=== PATIENT | male | born 1950 ===

== ENCOUNTER 2018-08-05 22:42 | Inpatient (IN) | payer OTHER ==
[2018-08-06] MEDS ORDERED: Sodium Chloride 0.9% 1,000 ML IV STA (00:24)
[2018-08-06 01:07] LABS: HEMOGLOBIN 14.5 g/dL (12.0-18.0); MEAN CELL VOLUME 94.3 fl (80.0-94.0); MEAN CORPUSCULAR HEMOGLOBIN 32.2 pg (27.0-31.0); MEAN CORPUSCULAR HGB CONC 34.1 g/dL (33.0-37.0); MEAN PLATELET VOLUME 9.7 fl (7.2-11.7); PLATELET COUNT 206 K/uL (130-400); RBC 4.51 Mil/uL (4.40-5.90); RED CELL DISTRIBUTION WIDTH 13.4 % (11.5-14.5); WHITE BLOOD COUNT 9.2 K/uL (4.8-10.8)
[2018-08-06 01:10] LABS: URINE AMORPHOUS SEDIMENT RARE /ul (<OCC); URINE BILIRUBIN NEGATIVE (NEGATIVE); URINE BLOOD NEGATIVE (NEGATIVE); URINE CLARITY SLIGHTY-CLOUDY (Clear); URINE COLOR YELLOW (YELLOW); URINE GLUCOSE (UA) 50 mg/dL (NEGATIVE); URINE LEUKOCYTE ESTERASE NEG Leu/uL (Negative); URINE PROTEIN NEGATIVE (NEGATIVE)
[2018-08-06 01:15] LABS: ALB/GLOB RATIO 1.2 (1.0-2.1); ALBUMIN 4.3 g/dL (3.5-5.0); ALT/SGPT 505 U/L (21-72); AST/SGOT 677 U/L (17-59); BLOOD UREA NITROGEN 14 mg/dl (9-20); CALCIUM 8.8 mg/dL (8.4-10.2); GFR NON-AFRICAN AMERICAN > 60; LIPASE 148 U/L (23-300)
--- NOTE | 2018-08-06 01:17 | ED PDOC ---
HPI: Abdomen Time Seen by Provider: 08/06/18 00:09 Chief Complaint (Nursing): Abdominal Pain Chief Complaint (Provider): Abdominal Pain History Per: Patient History/Exam Limitations: no limitations Onset/Duration Of Symptoms: Days (1) Location Of Pain/Discomfort: Epigastric Associated Symptoms: denies: Fever, Nausea, Vomiting, Diarrhea, Constipation Additional Complaint(s): 68 y/o male with no significant PMHx presents to the ED with abdominal pain for x1 day. Patient reports he developed mild epigastric pain earlier in the day. He drank some anise tea and felt better. However, pain recurred this evening and was much stronger. Patient denies nausea, vomiting, diarrhea, fever, cough, shortness of breath, chest pain, or any changes in bowel movement. Past Medical History Reviewed: Historical Data, Nursing Documentation, Vital Signs Vital Signs: Last Vital Signs Temp 98.5 F 08/05/18 22:50 Pulse 65 08/05/18 22:50 Resp 18 08/05/18 22:50 BP 160/83 H 08/05/18 22:50 Pulse Ox 96 08/05/18 22:50 - Medical History PMH: No Chronic Diseases - Surgical History Surgical History: Appendectomy - Family History Family History: States: Unknown Family Hx - Social History Current smoker - smoking cessation education provided: No Alcohol: None Drugs: Denies - Immunization History Hx Tetanus Toxoid Vaccination: No Hx Influenza Vaccination: No Hx Pneumococcal Vaccination: No - Home Medications Home Medications: Ambulatory Orders Medication Instructions Recorded No Known Home Med 08/06/18 - Allergies Allergies/Adverse Reactions: Allergies Allergy/AdvReac Type Severity Reaction Status Date / Time No Known Allergies Allergy Verified 08/05/18 22:52 Review of Systems ROS Statement: Except As Marked, All Systems Reviewed And Found Negative Constitutional: Negative for: Fever Cardiovascular: Negative for: Chest Pain Respiratory: Negative for: Cough, Shortness of Breath Gastrointestinal: Positive for: Abdominal Pain. Negative for: Nausea, Vomiting, Diarrhea, Constipation Physical Exam - Reviewed Nursing Documentation Reviewed: Yes Vital Signs Reviewed: Yes - Physical Exam Appears: Positive for: Well, Non-toxic, No Acute Distress Head Exam: Positive for: ATRAUMATIC, NORMAL INSPECTION, NORMOCEPHALIC Skin: Positive for: Normal Color, Warm, DRY Eye Exam: Positive for: EOMI, Normal appearance, PERRL ENT: Positive for: Normal ENT Inspection Neck: Positive for: Normal, Painless ROM Cardiovascular/Chest: Positive for: Regular Rate, Rhythm. Negative for: Murmur Respiratory: Positive for: Normal Breath Sounds. Negative for: Respiratory Distress Gastrointestinal/Abdominal: Positive for: Tenderness (epigastric and RUQ) Back: Positive for: Normal Inspection Extremity: Positive for: Normal ROM. Negative for: Pedal Edema, Deformity Neurological/Psych: Positive for: Awake, Alert, Normal Tone. Negative for: Motor/Sensory Deficits - Laboratory Results Result Diagrams: 08/06/18 01:03 08/06/18 01:03 Lab Results: Total Bilirubin 1.6 mg/dl (0.2-1.3) H 08/06/18 01:03 AST 677 U/L (17-59) H 08/06/18 01:03 ALT 505 U/L (21-72) H 08/06/18 01:03 Alkaline Phosphatase 185 U/L (38-126) H 08/06/18 01:03 Total Protein 7.8 G/DL (6.3-8.2) 08/06/18 01:03 Albumin 4.3 g/dL (3.5-5.0) 08/06/18 01:03 Globulin 3.5 gm/dL (2.2-3.9) 08/06/18 01:03 Albumin/Globulin Ratio 1.2 (1.0-2.1) 08/06/18 01:03 Lipase 148 U/L (23-300) 08/06/18 01:03 Urine Color Yellow (YELLOW) 08/06/18 01:03 Urine Clarity Slighty-cloudy (Clear) 08/06/18 01:03 Urine pH 7.0 (5.0-8.0) 08/06/18 01:03 Ur Specific [place] 1.017 (1.003-1.030) 08/06/18 01:03 Urine Protein Negative mg/dL (NEGATIVE) 08/06/18 01:03 Urine Glucose (UA) 50 mg/dL (NEGATIVE) 08/06/18 01:03 Urine Ketones Negative mg/dL (NEGATIVE) 08/06/18 01:03 Urine Blood Negative (NEGATIVE) 08/06/18 01:03 Urine Nitrate Negative (NEGATIVE) 08/06/18 01:03 Urine Bilirubin Negative (NEGATIVE) 08/06/18 01:03 Urine Urobilinogen 4.0 mg/dL (0.2-1.0) 08/06/18 01:03 Ur Leukocyte Esterase Neg Tomas/uL (Negative) 08/06/18 01:03 Urine RBC (Auto) 1 /hpf (0-3) 08/06/18 01:03 Urine Microscopic WBC 1 /hpf (0-5) 08/06/18 01:03 Amorphous Sediment Rare /ul (<OCC) H 08/06/18 01:03 - ECG O2 Sat by Pulse Oximetry: 96 (RA) Pulse Ox Interpretation: Normal Medical Decision Making Medical Decision Making: Time: 00:24 Impression: 68 y/o with abdominal pain Initial Plan: * Labs * IV Fluids * Zofran * Pepcid * US Gallbladder 02:12 US Findings: There is normal in size measuring 15.6 cm. Right hepatic lobe simple cyst measuring 2.9 cm. Thickening of the wall of the gallbladder measuring 6.7 mm. Cholelithiasis. Impacted gallstone in the neck of the gallbladder measuring 1.7 cm. Multiple other adjacent stones are noted. Distended gallbladder. Nonvisualization of the pancreas secondary to gaseous bowel distention. Nonvisua lization of the aorta and IVC. Nondilated common bile duct measuring 5.2 mm. Unremarkable right kidney. Impression: Acute calculus cholecystitis. 02:28 Labs reviewed clinically significant for marked elevation of LFTs. US reviewed. Patient case referred to surgical service, spoke with Dr. Hensley. Patient is to be admitted under Dr. Boles. Diagnosis is acute calculus cholecystitis. ---- Scribe Attestation: Documented by Kurt Oh, acting as a scribe Moy Hawthorne MD Provider Scribe Attestation: All medical record entries made by the Scribe were at my direction and personally dictated by me. I have reviewed the chart and agree that the record accurately reflects my personal performance of the history, physical exam, medical decision making, and the department course for this patient. I have also personally directed, reviewed, and agree with the discharge instructions and disposition Disposition - Clinical Impression Clinical Impression: Calculus of gallbladder with cholecystitis - Patient ED Disposition Is Patient to be Admitted: Yes - Disposition Disposition Time: 02:28 Condition: FAIR
[2018-08-06 02:23] LABS: LYMPH % 7.7 % (20.0-40.0); NEUT % 86.2 % (50.0-75.0)
[2018-08-06 02:24] LABS: BASO % 0.3 % (0.0-2.0); EOS % 0.1 % (0.0-4.0); MONO % 5.7 % (0.0-10.0)
[2018-08-06 02:25] LABS: NEUT # 7.6 K/uL (1.8-7.0); NRBC % 0.1 % (0.0-0.0)
[2018-08-06] MEDS ORDERED: Piperacillin/Tazobact 3.375 GM in Sodium Chloride 0.9% 100 ML IV STA (02:25)
[2018-08-06 02:26] LABS: BANDS 5 % (0-2); LYMPH # 0.7 K/uL (1.0-4.3); MONO # 0.5 K/uL (0.0-0.8); TOTAL CELLS COUNTED 100
[2018-08-06 02:27] LABS: LYMPHOCYTE 9 % (20-50); MONOCYTE 6 % (0-10); NEUTROPHIL 80 % (42-75); PLATELET ESTIMATE NORMAL (NORMAL)
[2018-08-06] MEDS ORDERED: Piperacillin/Tazobact 3.375 gm Inj IVPB ONE (03:05)
[2018-08-06] MEDS: Lactated Ringer's 1,000 ML IV SCH ×3 (05:40→21:00)
--- NOTE | 2018-08-06 06:58 | CP.PCM.HP ---
<Thierno Conrad - Last Filed: 08/06/18 08:33> History of Present Illness - History of Present Illness History of Present Illness: General Surgery History and Physical for Dr. Cloud This is a 68M with no PMH and a PSH of a open appendectomy many years ago. He presents with acute onset of right upper quadrant pain that began hours before admission. He reports he has never experienced anything like this before. Nothing makes it better and moving makes it worse. HE denies any fevers or chi lsl at home. Denies nausea or vomiting and denies diarrhea. He admits to flatus. He denies any chest pain or SOB. US i nthe ed was signififcant for calculous cholecystitis. PMH: Denies PSH: appendectomy ALL: NKDA Social: Denies vices Present on Admission - Present on Admission Any Indicators Present on Admission: No Review of Systems - Review of Systems Review of Systems: 12 point review of symptoms connucted and negative except for abdominal pain Past Patient History - Past Social History Alcohol: None Drugs: Denies - PSYCHIATRIC Hx Substance Use: No - SURGICAL HISTORY Hx Appendectomy: Yes - ANESTHESIA Hx Anesthesia: Yes Hx Anesthesia Reactions: No Meds Allergies/Adverse Reactions: Allergies Allergy/AdvReac Type Severity Reaction Status Date / Time No Known Allergies Allergy Verified 08/05/18 22:52 Physical Exam - Constitutional Appears: Non-toxic, No Acute Distress - Head Exam Head Exam: ATRAUMATIC, NORMOCEPHALIC - Eye Exam Eye Exam: EOMI, Normal appearance - ENT Exam ENT Exam: Mucous Membranes Moist - Respiratory Exam Respiratory Exam: NORMAL BREATHING PATTERN - Cardiovascular Exam Cardiovascular Exam: +S1, +S2 - GI/Abdominal Exam GI & Abdominal Exam: Soft, Tenderness. absent: Distended, Firm, Guarding, Rebound, Rigid - Neurological Exam Neurological exam: Alert, Oriented x3 - Psychiatric Exam Psychiatric exam: Normal Affect, Normal Mood - Skin Skin Exam: Dry, Intact Results - Vital Signs Recent Vital Signs: Last Vital Signs Temp 98.5 F 08/05/18 22:50 Pulse 65 08/05/18 22:50 Resp 18 08/05/18 22:50 BP 160/83 H 08/05/18 22:50 Pulse Ox 96 08/06/18 03:52 - Labs Result Diagrams: 08/06/18 01:03 08/06/18 01:03 Labs: Laboratory Results - last 24 hr 08/06/18 08/06/18 08/06/18 01:03 01:03 01:03 WBC 9.2 RBC 4.51 Hgb 14.5 Hct 42.5 MCV 94.3 H MCH 32.2 H MCHC 34.1 RDW 13.4 Plt Count 206 MPV 9.7 Neut % (Auto) 86.2 H Lymph % (Auto) 7.7 L [place] % (Auto) 5.7 Eos % (Auto) 0.1 Baso % (Auto) 0.3 Neut # (Auto) 7.6 H Lymph # (Auto) 0.7 L [place] # (Auto) 0.5 Eos # (Auto) 0.0 Baso # (Auto) 0.0 Neutrophils % (Manual) 80 H Band Neutrophils % 5 H Lymphocytes % (Manual) 9 L Monocytes % (Manual) 6 Platelet Estimate Normal RBC Morphology Normal Sodium 136 Potassium 4.3 Chloride 99 Carbon Dioxide 30 Anion Gap 11 BUN 14 Creatinine 0.8 Est GFR ( Amer) > 60 Est GFR (Non-Af Amer) > 60 Random Glucose 160 H Lactic Acid Calcium 8.8 Total Bilirubin 1.6 H AST 677 H ALT 505 H Alkaline Phosphatase 185 H Total Protein 7.8 Albumin 4.3 Globulin 3.5 Albumin/Globulin Ratio 1.2 Lipase 148 Urine Color Yellow Urine Clarity Slighty-cloudy Urine pH 7.0 Ur Specific [place] 1.017 Urine Protein Negative Urine Glucose (UA) 50 Urine Ketones Negative Urine Blood Negative Urine Nitrate Negative Urine Bilirubin Negative Urine Urobilinogen 4.0 Ur Leukocyte Esterase Neg Urine RBC (Auto) 1 Urine Microscopic WBC 1 Amorphous Sediment Rare H 08/06/18 03:01 WBC RBC Hgb Hct MCV MCH MCHC RDW Plt Count MPV Neut % (Auto) Lymph % (Auto) [place] % (Auto) Eos % (Auto) Baso % (Auto) Neut # (Auto) Lymph # (Auto) [place] # (Auto) Eos # (Auto) Baso # (Auto) Neutrophils % (Manual) Band Neutrophils % Lymphocytes % (Manual) Monocytes % (Manual) Platelet Estimate RBC Morphology Sodium Potassium Chloride Carbon Dioxide Anion Gap BUN Creatinine Est GFR ( Amer) Est GFR (Non-Af Amer) Random Glucose Lactic Acid 2.6 H Calcium Total Bilirubin AST ALT Alkaline Phosphatase Total Protein Albumin Globulin Albumin/Globulin Ratio Lipase Urine Color Urine Clarity Urine pH Ur Specific [place] Urine Protein Urine Glucose (UA) Urine Ketones Urine Blood Urine Nitrate Urine Bilirubin Urine Urobilinogen Ur Leukocyte Esterase Urine RBC (Auto) Urine Microscopic WBC Amorphous Sediment - Imaging and Cardiology US - abdomen Status: Image reviewed by me, Report reviewed by me Assessment & Plan - Assessment and Plan (Free Text) Assessment: 68M with acute calculous cholecystitis NPO IVF IV ABX OR planning Further recs per Dr. Pedro Luis Conrad PGY3 <Parker Cloud - Last Filed: 08/09/18 10:31> Results - Vital Signs Recent Vital Signs: Last Vital Signs Temp 98.6 F 08/09/18 08:11 Pulse 65 08/09/18 08:11 Resp 20 08/09/18 08:11 BP 118/77 08/09/18 08:11 Pulse Ox 92 L 08/09/18 08:11 - Labs Result Diagrams: 08/09/18 06:50 08/09/18 06:50 Labs: Laboratory Results - last 24 hr 08/09/18 08/09/18 06:50 06:50 WBC 9.2 RBC 3.78 L Hgb 12.1 Hct 35.8 MCV 94.7 H MCH 32.1 H MCHC 33.9 RDW 13.5 Plt Count 207 MPV 9.8 Neut % (Auto) 72.3 Lymph % (Auto) 16.1 L [place] % (Auto) 8.9 Eos % (Auto) 1.9 Baso % (Auto) 0.8 Neut # (Auto) 6.6 Lymph # (Auto) 1.5 [place] # (Auto) 0.8 Eos # (Auto) 0.2 Baso # (Auto) 0.1 Sodium 137 Potassium 3.7 Chloride 102 Carbon Dioxide 26 Anion Gap 13 BUN 19 Creatinine 0.8 Est GFR ( Amer) > 60 Est GFR (Non-Af Amer) > 60 Random Glucose 95 Calcium 7.8 L Phosphorus 3.2 Magnesium 2.1 Total Bilirubin 0.5 AST 36 ALT 187 H D Alkaline Phosphatase 113 Total Protein 6.7 Albumin 3.4 L Globulin 3.3 Albumin/Globulin Ratio 1.0 Assessment & Plan - Assessment and Plan (Free Text) Assessment: All medical record entries made by the resident were at my direction. I have reviewed the chart and agree that the record accurately reflects my personal performance of the history, physical exam, medical decision making. I have also personally examined the patient, reviewed, and agree the resident note.
--- NOTE | 2018-08-06 08:25 | CARD ---
APPROVED REPORT Date of service: 08/05/2018 EKG Measurement Heart [id number] [id number] [id number] <Conclusion> Normal sinus rhythm Normal Electrocardiogram
[2018-08-06] MEDS ORDERED: Pneumococcal 23-Valent Vaccine IM ONE (10:11)
[2018-08-06] MEDS ORDERED: Influenza Vaccine (5 YR UP)/PF 60 MCG/0.5 ML SYR IM ONE (10:11)
[2018-08-06] MEDS ORDERED: Influenza Vaccine 60 mcg/0.5 mL SYR (4YR UP) IM ONE (10:15)
[2018-08-06] MEDS: Ciprofloxacin 400mg/200ml D5W 400 MG/200 ML BAG IVPB SCH ×3 (10:43→23:05)
[2018-08-06] MEDS: HYDROmorphone 0.5 mg/0.5 ml ISec IVP PRN ×3 (10:55→21:56)
--- NOTE | 2018-08-06 12:42 | US ---
Date of service: 08/06/2018 HISTORY: RUQ COMPARISON: None. TECHNIQUE: Sonographic evaluation of the right upper quadrant of the abdomen. FINDINGS: LIVER: Measures 15.6 cm in length. Normal echogenicity of the liver parenchyma. Simple cyst in right lobe of liver, 2.9 x 3.0 x 3.0 cm. No other mass. No biliary dilatation. Smooth contour. Normal echogenicity. GALLBLADDER: Cholelithiasis. 17 mm calculus in the gallbladder neck common nonmobile. Diffusely thickened wall. Negative sonographic Garcia sign. The wall measures up to 7 mm in thickness. No pericholecystic fluid. Findings are equivocal for cholecystitis. COMMON BILE DUCT: Measures 5 mm. No stones. No dilatation. PANCREAS: Unremarkable as visualized. No mass. No ductal dilatation. RIGHT KIDNEY: Measures 13.0 cm in length. Normal echogenicity. No calculus, mass, or hydronephrosis. AORTA: No aneurysmal dilatation. IVC: Unremarkable. OTHER FINDINGS: None . IMPRESSION: Cholelithiasis with diffusely thickened gallbladder wall but negative sonographic Garcia sign. Nonmobile calculus in gallbladder neck. No pericholecystic fluid. Equivocal findings for cholecystitis. If clinically warranted consider evaluation with radionuclide hepatobiliary scan. The preliminary findings for this examination were reported by [facility] at 2:12 a.m. on 08/06/2018. There is concurrence of this report with the preliminary findings.
[2018-08-06 12:43] LABS: HEPATITIS B SURFACE AG Negative (NEGATIVE)
[2018-08-06 12:48] LABS: HEPATITIS A IGM NEGATIVE (NEGATIVE)
[2018-08-06 13:00] LABS: HEPATITIS C ANTIBODY NEGATIVE (NEGATIVE)
[2018-08-06 13:34] LABS: HEPATITIS B CORE AB NEGATIVE (NEGATIVE)
[2018-08-07] MEDS: Lactated Ringer's 1,000 ML IV SCH ×6 (01:28→21:19)
[2018-08-07] MEDS: HYDROmorphone 0.5 mg/0.5 ml ISec IVP PRN ×3 (03:26→16:15)
[2018-08-07 06:37] LABS: INR 1.3; PROTHROMBIN TIME 14.2 Seconds (9.8-13.1)
[2018-08-07 06:38] LABS: BASO # 0.1 K/uL (0.0-0.2); BASO % 0.4 % (0.0-2.0); EOS % 0.1 % (0.0-4.0); HEMOGLOBIN 13.3 g/dL (12.0-18.0); LYMPH % 6.2 % (20.0-40.0); MEAN CELL VOLUME 93.7 fl (80.0-94.0); MEAN CORPUSCULAR HEMOGLOBIN 32.1 pg (27.0-31.0); MEAN CORPUSCULAR HGB CONC 34.3 g/dL (33.0-37.0); MEAN PLATELET VOLUME 9.9 fl (7.2-11.7); MONO # 1.3 K/uL (0.0-0.8); MONO % 8.2 % (0.0-10.0); NEUT % 85.1 % (50.0-75.0); RBC 4.13 Mil/uL (4.40-5.90); RED CELL DISTRIBUTION WIDTH 13.4 % (11.5-14.5); WHITE BLOOD COUNT 16.4 K/uL (4.8-10.8)
[2018-08-07 06:40] LABS: PARTIAL THROMBOPLASTIN TIME 30.1 Seconds (25.6-37.1)
[2018-08-07 07:38] LABS: ALB/GLOB RATIO 1.1 (1.0-2.1); ALBUMIN 3.6 g/dL (3.5-5.0); ALT/SGPT 460 U/L (21-72); AST/SGOT 195 U/L (17-59); BLOOD UREA NITROGEN 16 mg/dl (9-20); CALCIUM 8.5 mg/dL (8.4-10.2); GFR NON-AFRICAN AMERICAN > 60
[2018-08-07] MEDS: Ciprofloxacin 400mg/200ml D5W 400 MG/200 ML BAG IVPB SCH ×2 (09:42→21:17)
[2018-08-07] MEDS ORDERED: Succinylcholine 200 mg/10 ml Inj IV ONE (11:49)
[2018-08-07] MEDS ORDERED: ePHEDrine 50 mg/ml Inj ONE (11:50)
[2018-08-07] MEDS ORDERED: Propofol 10 mg/ml Inj (20 ML) ONE (11:50)
[2018-08-07] MEDS ORDERED: Lidocaine 4% (Laryng-O-Jet) Kit MM ONE (11:50)
[2018-08-07] MEDS ORDERED: Midazolam 2 MG/2 ML VIAL ONE (11:50)
[2018-08-07] MEDS ORDERED: Rocuronium 10 mg/ml (5 ml) ONE ×2 (11:50→14:18)
[2018-08-07] MEDS ORDERED: Bupivacaine 0.5% Inj(30mL) ONE (12:21)
[2018-08-07] MEDS ORDERED: Lactated Ringer's 1,000 ML IV ONE ×2 (13:05→14:07)
[2018-08-07] MEDS ORDERED: Dexamethasone 4 mg/1 ml ONE (13:37)
[2018-08-07] MEDS ORDERED: Neostigmine 1:1000 (1 mg/ml) Inj ONE (14:39)
[2018-08-07] MEDS ORDERED: Desflurane Inhalation Anesthetic Liq (240 ml) ONE (14:52)
--- NOTE | 2018-08-07 15:21 | PCM.SURG1 ---
Surgeon's Initial Post Op Note - Surgeon's Notes Surgeon: Dr. Root Fur Cutting Machine Operator: Dr. Conrad PGY3, Dr. Emanuel PGY2 Type of Anesthesia: General Endo Anesthesia Administered By: Dr. Lawson Pre-Operative Diagnosis: Acute Cholecystitis Operative Findings: See operative dictation Post-Operative Diagnosis: Acute Cholecystitis Operation Performed: Laparoscopic Cholecystectomy Specimen/Specimens Removed: Gallbladder Estimated Blood Loss: EBL {In ML}: 250 Blood Products Given: N/A Drains Used: No Drains Post-Op Condition: Good Date of Surgery/Procedure: 08/07/18 Time of Surgery/Procedure: 15:21
[2018-08-08] MEDS: Lactated Ringer's 1,000 ML IV SCH ×5 (03:28→13:12)
[2018-08-08 07:04] LABS: BASO # 0.1 K/uL (0.0-0.2); BASO % 0.5 % (0.0-2.0); HEMOGLOBIN 12.1 g/dL (12.0-18.0); LYMPH # 0.8 K/uL (1.0-4.3); LYMPH % 5.1 % (20.0-40.0); MEAN CELL VOLUME 94.8 fl (80.0-94.0); MEAN CORPUSCULAR HEMOGLOBIN 31.6 pg (27.0-31.0); MEAN CORPUSCULAR HGB CONC 33.4 g/dL (33.0-37.0); MEAN PLATELET VOLUME 9.5 fl (7.2-11.7); MONO # 1.2 K/uL (0.0-0.8); MONO % 7.3 % (0.0-10.0); NEUT # 14.3 K/uL (1.8-7.0); NEUT % 87.1 % (50.0-75.0); RBC 3.82 Mil/uL (4.40-5.90); RED CELL DISTRIBUTION WIDTH 13.5 % (11.5-14.5); WHITE BLOOD COUNT 16.4 K/uL (4.8-10.8)
[2018-08-08 07:29] LABS: ALB/GLOB RATIO 1.1 (1.0-2.1); ALBUMIN 3.3 g/dL (3.5-5.0); ALT/SGPT 274 U/L (21-72); AST/SGOT 70 U/L (17-59); BLOOD UREA NITROGEN 15 mg/dl (9-20); CALCIUM 8.5 mg/dL (8.4-10.2); GFR NON-AFRICAN AMERICAN > 60
[2018-08-08] MEDS: Ciprofloxacin 400mg/200ml D5W 400 MG/200 ML BAG IVPB SCH ×2 (10:12→21:15)
--- NOTE | 2018-08-08 10:28 | CP.PCM.PN ---
<Easton Emanuel - Last Filed: 08/08/18 11:23> Subjective - Date & Time of Evaluation Date of Evaluation: 08/08/18 Time of Evaluation: 08:00 - Subjective Subjective: General Surgery Note for Dr. Hodges Patient seen and examined at bedside. No acute event overnight. Patient is s/p laparoscopic cholecystectomy POD#1. Patient states pain is controlled. Denies fever/chills or nausea/vomiting. Morris drain with 20cc of serosanguinous output since OR. Patient report to passing flatus and urinating without difficulty but denies BM. He states he has an appetite but not overly hungry. Objective - Vital Signs/Intake and Output Vital Signs (last 24 hours): Temp Pulse Resp BP Pulse Ox 98.4 F 68 20 121/72 95 08/08/18 08:38 08/08/18 08:38 08/08/18 08:38 08/08/18 08:38 08/08/18 08:38 - Medications Medications: Current Medications Hydromorphone HCl (Dilaudid) 0.5 mg IVP Q4 PRN PRN Reason: Pain, moderate (4-7) Last Admin: 08/07/18 03:26 Dose: 0.5 mg Lactated Ringer's (Lactated Ringer's) 1,000 mls @ 125 mls/hr IV .Q8H DANY Last Admin: 08/08/18 09:09 Dose: Not Given Ciprofloxacin (Cipro 400mg/200ml Dsw) 400 mg in 200 mls @ 200 mls/hr IVPB Q12 DANY; Protocol Last Admin: 08/08/18 10:12 Dose: 200 mls/hr Lactated Ringer's (Lactated Ringer's) 1,000 mls @ 100 mls/hr IV .Q10H DANY Last Admin: 08/08/18 03:28 Dose: 100 mls/hr Ibuprofen (Motrin Tab) 400 mg PO Q6 PRN PRN Reason: Fever >100.4 F Last Admin: 08/06/18 17:34 Dose: 400 mg - Labs Labs: 08/08/18 06:55 08/08/18 06:55 PT 14.2 Seconds (9.8-13.1) H 08/07/18 05:50 INR 1.3 08/07/18 05:50 APTT 30.1 Seconds (25.6-37.1) 08/07/18 05:50 - Constitutional Appears: No Acute Distress - Head Exam Head Exam: ATRAUMATIC, NORMOCEPHALIC - Eye Exam Eye Exam: EOMI, Normal appearance Pupil Exam: PERRL - ENT Exam ENT Exam: Mucous Membranes Moist - Respiratory Exam Respiratory Exam: NORMAL BREATHING PATTERN - Cardiovascular Exam Cardiovascular Exam: REGULAR RHYTHM - GI/Abdominal Exam GI & Abdominal Exam: Soft, Tenderness (surgical sites), Normal Bowel Sounds. absent: Distended, Firm, Guarding, Rigid, Rebound Additional comments: morris drain in RUQ surgical sites clean dry and intact with dermabond - Extremities Exam Extremities Exam: Normal Capillary Refill. absent: Calf Tenderness - Back Exam Back Exam: absent: CVA tenderness (L), CVA tenderness (R) - Neurological Exam Neurological Exam: Alert, Awake, CN II-XII Intact, Oriented x3 - Psychiatric Exam Psychiatric exam: Normal Affect, Normal Mood - Skin Skin Exam: Dry, Intact, Warm Assessment and Plan - Assessment and Plan (Free Text) Assessment: 68M s/p laparoscopic cholecystectomy POD#1 Plan: -Reg diet -May DC IVF when eating/tolerating regular diet -IV abx -Pain control -Monitor drain output -Discussed with Dr. Teixeira PGY2 <Parker Cloud - Last Filed: 08/11/18 14:34> Objective - Vital Signs/Intake and Output Vital Signs (last 24 hours): Temp Pulse Resp BP Pulse Ox 99.5 F 69 20 122/73 92 L 08/09/18 17:00 08/09/18 17:00 08/09/18 17:00 08/09/18 17:00 08/09/18 17:00 - Labs Labs: 08/09/18 06:50 08/09/18 06:50 PT 14.2 Seconds (9.8-13.1) H 08/07/18 05:50 INR 1.3 08/07/18 05:50 APTT 30.1 Seconds (25.6-37.1) 08/07/18 05:50 Assessment and Plan - Assessment and Plan (Free Text) Plan: All medical record entries made by the resident were at my direction and personally directed by me. I have reviewed the chart and agree that the record accurately reflects my personal performance of the history, physical exam, medical decision making,
[2018-08-08] MEDS: HYDROmorphone 0.5 mg/0.5 ml ISec IVP PRN (19:40)
[2018-08-09 00:03] VITALS: RESP 20
[2018-08-09 07:35] LABS: BASO # 0.1 K/uL (0.0-0.2); BASO % 0.8 % (0.0-2.0); EOS # 0.2 K/uL (0.0-0.7); EOS % 1.9 % (0.0-4.0); HEMOGLOBIN 12.1 g/dL (12.0-18.0); LYMPH # 1.5 K/uL (1.0-4.3); LYMPH % 16.1 % (20.0-40.0); MEAN CELL VOLUME 94.7 fl (80.0-94.0); MEAN CORPUSCULAR HEMOGLOBIN 32.1 pg (27.0-31.0); MEAN CORPUSCULAR HGB CONC 33.9 g/dL (33.0-37.0); MEAN PLATELET VOLUME 9.8 fl (7.2-11.7); MONO # 0.8 K/uL (0.0-0.8); MONO % 8.9 % (0.0-10.0); NEUT # 6.6 K/uL (1.8-7.0); NEUT % 72.3 % (50.0-75.0); NRBC % 0.1 % (0.0-0.0); RBC 3.78 Mil/uL (4.40-5.90); RED CELL DISTRIBUTION WIDTH 13.5 % (11.5-14.5); WHITE BLOOD COUNT 9.2 K/uL (4.8-10.8)
[2018-08-09 07:52] LABS: ALBUMIN 3.4 g/dL (3.5-5.0); ALT/SGPT 187 U/L (21-72); AST/SGOT 36 U/L (17-59); BLOOD UREA NITROGEN 19 mg/dl (9-20); CALCIUM 7.8 mg/dL (8.4-10.2); GFR NON-AFRICAN AMERICAN > 60
[2018-08-09 08:11] VITALS: O2SAT 92
[2018-08-09] MEDS: Ciprofloxacin 400mg/200ml D5W 400 MG/200 ML BAG IVPB SCH (09:33)
[2018-08-09 16:34] VITALS: BP 122/73; PULSE 69; TEMP 99.5
--- NOTE | 2018-08-09 16:35 | CP.PCM.DIS ---
<Aliyah Linton - Last Filed: 08/09/18 16:36> Provider - Provider Date of Admission: 08/06/18 02:26 Attending physician: Parker Calvo MD Consults: none Time Spent in preparation of Discharge (in minutes): 30 Hospital Course - Lab Results Lab Results: Micro Results 08/06/18 07:25 Blood-Venous Blood Culture - Preliminary NO GROWTH AFTER 3 DAYS Most Recent Lab Values WBC 9.2 K/uL (4.8-10.8) 08/09/18 06:50 RBC 3.78 Mil/uL (4.40-5.90) L 08/09/18 06:50 Hgb 12.1 g/dL (12.0-18.0) 08/09/18 06:50 Hct 35.8 % (35.0-51.0) 08/09/18 06:50 MCV 94.7 fl (80.0-94.0) H 08/09/18 06:50 MCH 32.1 pg (27.0-31.0) H 08/09/18 06:50 MCHC 33.9 g/dL (33.0-37.0) 08/09/18 06:50 RDW 13.5 % (11.5-14.5) 08/09/18 06:50 Plt Count 207 K/uL (130-400) 08/09/18 06:50 MPV 9.8 fl (7.2-11.7) 08/09/18 06:50 Neut % (Auto) 72.3 % (50.0-75.0) 08/09/18 06:50 Lymph % (Auto) 16.1 % (20.0-40.0) L 08/09/18 06:50 [place] % (Auto) 8.9 % (0.0-10.0) 08/09/18 06:50 Eos % (Auto) 1.9 % (0.0-4.0) 08/09/18 06:50 Baso % (Auto) 0.8 % (0.0-2.0) 08/09/18 06:50 Neut # (Auto) 6.6 K/uL (1.8-7.0) 08/09/18 06:50 Lymph # (Auto) 1.5 K/uL (1.0-4.3) 08/09/18 06:50 [place] # (Auto) 0.8 K/uL (0.0-0.8) 08/09/18 06:50 Eos # (Auto) 0.2 K/uL (0.0-0.7) 08/09/18 06:50 Baso # (Auto) 0.1 K/uL (0.0-0.2) 08/09/18 06:50 Neutrophils % (Manual) 80 % (42-75) H 08/06/18 01:03 Band Neutrophils % 5 % (0-2) H 08/06/18 01:03 Lymphocytes % (Manual) 9 % (20-50) L 08/06/18 01:03 Monocytes % (Manual) 6 % (0-10) 08/06/18 01:03 Platelet Estimate Normal (NORMAL) 08/06/18 01:03 RBC Morphology Normal (NORMAL) 08/06/18 01:03 PT 14.2 Seconds (9.8-13.1) H 08/07/18 05:50 INR 1.3 08/07/18 05:50 APTT 30.1 Seconds (25.6-37.1) 08/07/18 05:50 Sodium 137 mmol/l (132-148) 08/09/18 06:50 Potassium 3.7 MMOL/L (3.6-5.0) 08/09/18 06:50 Chloride 102 mmol/L (98-107) 08/09/18 06:50 Carbon Dioxide 26 mmol/L (22-30) 08/09/18 06:50 Anion Gap 13 (10-20) 08/09/18 06:50 BUN 19 mg/dl (9-20) 08/09/18 06:50 Creatinine 0.8 mg/dl (0.8-1.5) 08/09/18 06:50 Est GFR ( Amer) > 60 08/09/18 06:50 Est GFR (Non-Af Amer) > 60 08/09/18 06:50 Random Glucose 95 mg/dL (75-110) 08/09/18 06:50 Lactic Acid 2.6 mmol/L (0.7-2.1) H 08/06/18 03:01 Calcium 7.8 mg/dL (8.4-10.2) L 08/09/18 06:50 Phosphorus 3.2 mg/dl (2.5-4.5) 08/09/18 06:50 Magnesium 2.1 MG/DL (1.6-2.3) 08/09/18 06:50 Total Bilirubin 0.5 mg/dl (0.2-1.3) 08/09/18 06:50 AST 36 U/L (17-59) 08/09/18 06:50 ALT 187 U/L (21-72) H D 08/09/18 06:50 Alkaline Phosphatase 113 U/L (38-126) 08/09/18 06:50 Total Protein 6.7 G/DL (6.3-8.2) 08/09/18 06:50 Albumin 3.4 g/dL (3.5-5.0) L 08/09/18 06:50 Globulin 3.3 gm/dL (2.2-3.9) 08/09/18 06:50 Albumin/Globulin Ratio 1.0 (1.0-2.1) 08/09/18 06:50 Lipase 148 U/L (23-300) 08/06/18 01:03 Urine Color Yellow (YELLOW) 08/06/18 01:03 Urine Clarity Slighty-cloudy (Clear) 08/06/18 01:03 Urine pH 7.0 (5.0-8.0) 08/06/18 01:03 Ur Specific [place] 1.017 (1.003-1.030) 08/06/18 01:03 Urine Protein Negative mg/dL (NEGATIVE) 08/06/18 01:03 Urine Glucose (UA) 50 mg/dL (NEGATIVE) 08/06/18 01:03 Urine Ketones Negative mg/dL (NEGATIVE) 08/06/18 01:03 Urine Blood Negative (NEGATIVE) 08/06/18 01:03 Urine Nitrate Negative (NEGATIVE) 08/06/18 01:03 Urine Bilirubin Negative (NEGATIVE) 08/06/18 01:03 Urine Urobilinogen 4.0 mg/dL (0.2-1.0) 08/06/18 01:03 Ur Leukocyte Esterase Neg Tomas/uL (Negative) 08/06/18 01:03 Urine RBC (Auto) 1 /hpf (0-3) 08/06/18 01:03 Urine Microscopic WBC 1 /hpf (0-5) 08/06/18 01:03 Amorphous Sediment Rare /ul (<OCC) H 08/06/18 01:03 Hepatitis A IgM Ab Negative (NEGATIVE) 08/06/18 10:10 Hep Bs Antigen Negative (NEGATIVE) 08/06/18 10:10 Hep B Core IgM Ab Negative (NEGATIVE) 08/06/18 10:10 Hepatitis C Antibody Negative (NEGATIVE) 08/06/18 10:10 Blood Type A POSITIVE 08/07/18 05:50 Blood Type Confirm A POSITIVE 08/07/18 07:00 Antibody Screen Negative 08/07/18 05:50 BBK History Checked No verified bt 08/07/18 05:50 - Hospital Course Hospital Course: 68M with no PMHx and a PSHx of a open appendectomy many years ago presented to the ED on 08/06 with acute onset of right upper quadrant pain that began hours before admission. Denied nausea or vomiting. US in the ED showed Cholelithiasis with diffusely thickened gallbladder wall but negative sonographic Garcia sign. Nonmobile calculus in gallbladder neck. he was given IV Antibiotics. He was taken to the OR on 08/07 for laparoscopic cholecystectomy. A morris drain was left. On POD#2, he was tolerating diet, pain well controlled on NSAIDs only, ambulating, and leukocytosis had resolved. Morris drain was removed and he was discharged home to follow up with the surgeon in the office. Discharge Exam - Head Exam Head Exam: ATRAUMATIC, NORMOCEPHALIC - Respiratory Exam Respiratory Exam: NORMAL BREATHING PATTERN. absent: Respiratory Distress - Cardiovascular Exam Cardiovascular Exam: +S1, +S2 - GI/Abdominal Exam GI & Abdominal Exam: Soft, Tenderness (mild abeba-incisional tenderness). absent: Distended, Firm, Guarding, Rebound, Rigid Additional comments: Dermabond in place over laparoscopic incision sites - Neurological Exam Neurological exam: Alert, CN II-XII Intact, Oriented x3 - Psychiatric Exam Psychiatric exam: Normal Affect, Normal Mood Discharge Plan - Follow Up Plan Condition: FAIR Disposition: HOME/ ROUTINE Instructions: Cholecystectomy, Laparoscopic Surgery, Cholecystitis (DC) Additional Instructions: hacer mihai con lobato primario dentro 1 semana Follow up with Dr. Calvo in 1-2 weeks. Call to make appointment May shower but do not take a bath or swim for 2 weeks Avoid heavy lifting for 4 weeks Referrals: Parker Calvo MD [Staff Provider] - <Parker Calvo - Last Filed: 08/11/18 14:31> Provider - Provider Date of Admission: 08/06/18 02:26 Attending physician: Parker Calvo MD Hospital Course - Lab Results Lab Results: Micro Results 08/06/18 07:25 Blood-Venous Blood Culture - Final NO GROWTH AFTER 5 DAYS 08/06/18 07:25 Blood-Venous Gram Stain - Final TEST NOT PERFORMED Most Recent Lab Values WBC 9.2 K/uL (4.8-10.8) 08/09/18 06:50 RBC 3.78 Mil/uL (4.40-5.90) L 08/09/18 06:50 Hgb 12.1 g/dL (12.0-18.0) 08/09/18 06:50 Hct 35.8 % (35.0-51.0) 08/09/18 06:50 MCV 94.7 fl (80.0-94.0) H 08/09/18 06:50 MCH 32.1 pg (27.0-31.0) H 08/09/18 06:50 MCHC 33.9 g/dL (33.0-37.0) 08/09/18 06:50 RDW 13.5 % (11.5-14.5) 08/09/18 06:50 Plt Count 207 K/uL (130-400) 08/09/18 06:50 MPV 9.8 fl (7.2-11.7) 08/09/18 06:50 Neut % (Auto) 72.3 % (50.0-75.0) 08/09/18 06:50 Lymph % (Auto) 16.1 % (20.0-40.0) L 08/09/18 06:50 [place] % (Auto) 8.9 % (0.0-10.0) 08/09/18 06:50 Eos % (Auto) 1.9 % (0.0-4.0) 08/09/18 06:50 Baso % (Auto) 0.8 % (0.0-2.0) 08/09/18 06:50 Neut # (Auto) 6.6 K/uL (1.8-7.0) 08/09/18 06:50 Lymph # (Auto) 1.5 K/uL (1.0-4.3) 08/09/18 06:50 [place] # (Auto) 0.8 K/uL (0.0-0.8) 08/09/18 06:50 Eos # (Auto) 0.2 K/uL (0.0-0.7) 08/09/18 06:50 Baso # (Auto) 0.1 K/uL (0.0-0.2) 08/09/18 06:50 Neutrophils % (Manual) 80 % (42-75) H 08/06/18 01:03 Band Neutrophils % 5 % (0-2) H 08/06/18 01:03 Lymphocytes % (Manual) 9 % (20-50) L 08/06/18 01:03 Monocytes % (Manual) 6 % (0-10) 08/06/18 01:03 Platelet Estimate Normal (NORMAL) 08/06/18 01:03 RBC Morphology Normal (NORMAL) 08/06/18 01:03 PT 14.2 Seconds (9.8-13.1) H 08/07/18 05:50 INR 1.3 08/07/18 05:50 APTT 30.1 Seconds (25.6-37.1) 08/07/18 05:50 Sodium 137 mmol/l (132-148) 08/09/18 06:50 Potassium 3.7 MMOL/L (3.6-5.0) 08/09/18 06:50 Chloride 102 mmol/L (98-107) 08/09/18 06:50 Carbon Dioxide 26 mmol/L (22-30) 08/09/18 06:50 Anion Gap 13 (10-20) 08/09/18 06:50 BUN 19 mg/dl (9-20) 08/09/18 06:50 Creatinine 0.8 mg/dl (0.8-1.5) 08/09/18 06:50 Est GFR ( Amer) > 60 08/09/18 06:50 Est GFR (Non-Af Amer) > 60 08/09/18 06:50 Random Glucose 95 mg/dL (75-110) 08/09/18 06:50 Lactic Acid 2.6 mmol/L (0.7-2.1) H 08/06/18 03:01 Calcium 7.8 mg/dL (8.4-10.2) L 08/09/18 06:50 Phosphorus 3.2 mg/dl (2.5-4.5) 08/09/18 06:50 Magnesium 2.1 MG/DL (1.6-2.3) 08/09/18 06:50 Total Bilirubin 0.5 mg/dl (0.2-1.3) 08/09/18 06:50 AST 36 U/L (17-59) 08/09/18 06:50 ALT 187 U/L (21-72) H D 08/09/18 06:50 Alkaline Phosphatase 113 U/L (38-126) 08/09/18 06:50 Total Protein 6.7 G/DL (6.3-8.2) 08/09/18 06:50 Albumin 3.4 g/dL (3.5-5.0) L 08/09/18 06:50 Globulin 3.3 gm/dL (2.2-3.9) 08/09/18 06:50 Albumin/Globulin Ratio 1.0 (1.0-2.1) 08/09/18 06:50 Lipase 148 U/L (23-300) 08/06/18 01:03 Urine Color Yellow (YELLOW) 08/06/18 01:03 Urine Clarity Slighty-cloudy (Clear) 08/06/18 01:03 Urine pH 7.0 (5.0-8.0) 08/06/18 01:03 Ur Specific [place] 1.017 (1.003-1.030) 08/06/18 01:03 Urine Protein Negative mg/dL (NEGATIVE) 08/06/18 01:03 Urine Glucose (UA) 50 mg/dL (NEGATIVE) 08/06/18 01:03 Urine Ketones Negative mg/dL (NEGATIVE) 08/06/18 01:03 Urine Blood Negative (NEGATIVE) 08/06/18 01:03 Urine Nitrate Negative (NEGATIVE) 08/06/18 01:03 Urine Bilirubin Negative (NEGATIVE) 08/06/18 01:03 Urine Urobilinogen 4.0 mg/dL (0.2-1.0) 08/06/18 01:03 Ur Leukocyte Esterase Neg Tomas/uL (Negative) 08/06/18 01:03 Urine RBC (Auto) 1 /hpf (0-3) 08/06/18 01:03 Urine Microscopic WBC 1 /hpf (0-5) 08/06/18 01:03 Amorphous Sediment Rare /ul (<OCC) H 08/06/18 01:03 Hepatitis A IgM Ab Negative (NEGATIVE) 08/06/18 10:10 Hep Bs Antigen Negative (NEGATIVE) 08/06/18 10:10 Hep B Core IgM Ab Negative (NEGATIVE) 08/06/18 10:10 Hepatitis C Antibody Negative (NEGATIVE) 08/06/18 10:10 Blood Type A POSITIVE 08/07/18 05:50 Blood Type Confirm A POSITIVE 08/07/18 07:00 Antibody Screen Negative 08/07/18 05:50 BBK History Checked No verified bt 08/07/18 05:50
--- NOTE | 2018-08-13 09:28 | OP ---
PROCEDURE DATE: 08/07/2018 SURGEON: Parker Gonzalez MD SURGEON TIFFANY: Thierno Conrad DO. MANAGED CARE PROVIDER: Easton Emanuel DO. TYPE OF ANESTHESIA: General endotracheal anesthesia. ANESTHESIA ADMINISTERED BY: Elizabeth Girard MD. PREOPERATIVE DIAGNOSIS: Acute cholecystitis. OPERATIVE FINDINGS: Acutely inflamed gallbladder. POSTOPERATIVE DIAGNOSIS: Acutely inflamed gallbladder. OPERATION PERFORMED: Laparoscopic cholecystectomy. SPECIMENS REMOVED: Gallbladder. ESTIMATED BLOOD LOSS: 200 mL of blood. No blood products were given. INDICATIONS: This is a 68-year-old male with no past medical history. He had a surgical history of lumbar laminectomy many years ago. He presents with acute onset of right upper quadrant pain that began hours before. The patient reports he had not experienced anything like this before. He said nothing made it better, nothing made it worse. He denied any fevers or chills at home. However, he admits later that he had an ultrasound in the ED that was significant for acalculous cholecystitis. DESCRIPTION OF PROCEDURE: After all consents were obtained by the patient, then the options and the consequences of not going to surgery versus consequences of going to surgery and all other possibilities, the patient agreed to have surgery to remove the gallbladder. He was taken to the operating room where he was placed in the supine position. The patient was prepped and draped in the usual sterile fashion. The patient was intubated and endotracheal anesthesia was administered. A time-out was done, which states the checklist for pre incision and preinduction was conducted and everybody agreed. At that time, a 5 mm supraumbilical incision was made. A 5 mm scope was placed. The abdomen was noted to have multiple adhesions. Next, under direct visualization, the right lateral assist ports were then placed under direct visualization, not damaged, the last port that was placed was a 12 mm subxiphoid port. What I perhaps mentioned earlier was that the abdomen was insufflated using a Veress needle to 50 mmHg before the initial umbilical port was placed. After all ports were placed using the Prestige, the omentum that was adhesed to the gallbladder was slowly taken down enough that the gallbladder could be visualized. Using a laparoscopic needle aspirator, the gallbladder was then aspirated so that there would be less tension. The gallbladder was then retracted cephalad and laterally to expose the cystic duct. Using the suction, blunt dissection was then carried down to tease off all adhesions in the gallbladder. There were multiple adhesions. The gallbladder was noted to have multiple areas that were inflamed somewhat necrotic looking. During the removal of adhesive inflamed tissue, there was noted oozing, however, there was no finite source. During this process, the gallbladder having entered multiple times, due to the inflammation, it was extremely friable, so the abdomen was suctioned vigorously in order to remove all bile. Two stones had fallen from the gallbladder. They were placed in a visible spot over the omentum. After a tortuous dissection, there were two structures noted going into the gallbladder and only two structures going into the gallbladder. The gallbladder was dissected off the wall behind these two structures in order to be sure that, that was the case. When it was retracted, we made sure that there was no tenting of the common bile duct into our structures. First, the artery was doubly clipped using a 12-clip video game engineer twice at the most proximal and one at the distal end and then it was divided using an Endo Shear. Next, the cystic duct was significantly large and the 12-clip video game engineer was not going to accommodate, so at that point, we used the 35 endo LONNIE stapler. We used a green load in order to divide the cystic duct. The staple line was clean, it was dry. At that point using the electrocautery, the gallbladder was taken off the liver bed. No other structures were found going into the gallbladder. There was no bile leaking from the liver bed or elsewhere in the surgical field. The abdomen was then irrigated and suction dried. The gallbladder was removed from the subxiphoid port. All counts were turned to be correct. With the abdomen still insufflated under direct visualization with the camera, the fascia was then closed using a 0 Vicryl on a UR6 needle on the subxiphoid port where the 12 was used. All other 5 ports were then closed using a skin with just Monocryl fashion. The skin was then reinforced using surgical blue. The patient was extubated, tolerated the procedure well. Went to PACU in stable condition. Thierno Conrad, Parker Gonzalez MD [id number]
== END 2018-08-09 18:09 | disposition home or self-care (01) | DRG 263 ==
LOC: H.ER 22:42 → H.ERHOLD 08-06 02:26 → H.MEDSURG1 08-06 08:30
PROVIDERS: ADMIT Surgery; ATTEND Surgery
PROC: 0FT44ZZ Resection of Gallbladder, Percutaneous Endoscopic Approach (ICD-10-PCS; principal; 2018-08-07 14:00)
DX: K80.00 Calculus of gallbladder with acute cholecystitis without obstruction (principal); Z90.49 Acquired absence of other specified parts of digestive tract